=== PATIENT | male | born 1985 | race Asian ===

== ENCOUNTER 2018-05-29 14:39 | Outpatient (CLI) | payer BC ==
--- NOTE | 2018-05-29 15:23 | RAD ---
LUMBAR SPINE 2 VIEWS: Date: 05/29/18 HISTORY: Low back pain. FINDINGS/IMPRESSION: No fracture, subluxation, or bony destruction is identified. POS: [facility]
== END 2018-05-29 14:40 | disposition home or self-care (01) ==
LOC: BICRAD 14:39
PROVIDERS: ATTEND Family Medicine
DX: M54.5 Low back pain (principal)
CPT/HCPCS: 72100